=== PATIENT | female | born 1970 | race Hispanic/Latino ===

== ENCOUNTER 2020-05-28 14:16 | Emergency (ER) | payer SELFPAY ==
[~2020-05-28] VITALS: Ht 160 cm; Wt 59.9 kg
[2020-05-28] MEDS ORDERED: MORPHINE SULFATE 2 MG/ML SYR 1ML IM STA (15:27)
[2020-05-28] MEDS ORDERED: ONDANSETRON HCL 4 MG ORAL DISINTEGRATING TAB PO ONE (15:30)
[2020-05-28] MEDS ORDERED: PIPER-TAZ 3.375 GM 50 ML IV ONE (15:45)
--- NOTE | 2020-05-28 15:49 | NUR ---
2mg of morphine
[2020-05-28] MEDS ORDERED: SODIUM CHLORIDE 0.9% 1000ML 1,000 ML ONE (15:58)
--- NOTE | 2020-05-28 16:00 | NUR ---
no relief from the morphine
[2020-05-28 16:01] LABS: BASOPHILS % 0.5 % (0.0-1.0); EOSINOPHILS % 0.6 % (0.0-6.0); HEMATOCRIT 33.7 % (34.2-44.1); HEMOGLOBIN 10.4 g/dL (12.0-16.0); LYMPHOCYTES # (AUTO) 1.2 (1.0-3.2); LYMPHOCYTES % 17.5 % (18.0-39.1); MEAN CORPUSCULAR HEMOGLOBIN 24.6 pg (28-32); MEAN CORPUSCULAR HGB CONC 30.9 g/dL (31-35); MEAN CORPUSCULAR VOLUME 79.9 fL (81-99); MONOCYTES # (AUTO) 0.7 (0.2-0.8); NEUTROPHILS # (AUTO) 4.7 (2.1-6.9); NEUTROPHILS % 70.9 % (38.7-80.0); PLATELET COUNT 294 x10e3/uL (140-360); RED BLOOD COUNT 4.22 x10e6/uL (3.6-5.1); RED CELL DISTRIBUTION WIDTH 15.3 % (11.7-14.4)
[2020-05-28 16:19] LABS: ALANINE AMINOTRANSFERASE 14 IU/L (0-55); ALBUMIN 4.4 g/dL (3.5-5.0); ALBUMIN/GLOBULIN RATIO 1.3 (0.8-2.0); ALKALINE PHOSPHATASE 75 IU/L (40-150); ANION GAP 16.3 mmol/L (8-16); BLOOD UREA NITROGEN 22 mg/dL (7-26); BUN/CREATININE RATIO 33 (6-25); CALCIUM 9.7 mg/dL (8.4-10.2); CARBON DIOXIDE 28 mmol/L (22-29); CHLORIDE 102 mmol/L (98-107); CREATINE KINASE 34 IU/L (29-168); CREATININE, SERUM 0.67 mg/dL (0.57-1.11); EST GLOMERULAR FILTRATION RATE > 60 ML/MIN (60-); GLUCOSE 107 mg/dL (74-118); POTASSIUM 4.3 mmol/L (3.5-5.1); SODIUM 142 mmol/L (136-145)
[2020-05-28] MEDS ORDERED: PANTOPRAZOLE 40 MG 10ML VIAL IV STA (16:24)
[2020-05-28] MEDS ORDERED: SODIUM CHLORIDE 0.9% 50ML 50 ML ONE (16:51)
[2020-05-28] MEDS ORDERED: IOPAMIDOL 370 MG/ML 200 ML INFUS..BTL INJ ONE (16:51)
[2020-05-28] MEDS ORDERED: MORPHINE SULFATE INJ 4 MG/ML INJ 1ML IV PRN (17:00)
--- NOTE | 2020-05-28 17:13 | NUR ---
4 mg of morphine given
[2020-05-28 17:18] LABS: BILIRUBIN,URINE NEGATIVE (NEGATIVE); CLARITY,URINE HAZY (CLEAR); COLOR,URINE YELLOW (YELLOW); KETONES,URINE NEGATIVE (NEGATIVE); LEUKOCYTE ESTERASE ,URINE NEGATIVE (NEGATIVE); NITRITE,URINE NEGATIVE (NEGATIVE); PROTEIN,URINE DIPSTICK NEGATIVE (NEGATIVE); URINE UROBILINOGEN 0.2 mg/dL (0.2 - 1)
[2020-05-28 17:29] LABS: AMORPHOUS SEDIMENT,URINE MANY (FEW); BACTERIA,URINE FEW /HPF
[2020-05-28] MEDS ORDERED: METHYLPREDNISOLONE SOD SUCC 125 MG/2ML VIAL IV ONE (17:30)
[2020-05-28] MEDS ORDERED: DIPHENHYDRAMINE HCL INJ 50 MG/ML VIAL IV ONE (17:30)
--- NOTE | 2020-05-28 17:35 | NUR ---
no relief from the morphine
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
--- NOTE | 2020-05-28 17:45 | NUR ---
refused to drink the ct contrast
[2020-05-28] MEDS: METOPROLOL TARTRATE 25 MG TAB PO ONE ×2 (18:15→21:00)
--- NOTE | 2020-05-28 19:03 | Diagnostic Imaging Report ---
EXAM: CT Chest, Abdomen and Pelvis WITHOUT contrast INDICATION: Chest and abdominal pain. COMPARISON: None. TECHNIQUE: Chest, abdomen and pelvis were scanned utilizing a multidetector helical scanner from the lung apex to the pubic symphysis without administration of IV contrast. Absence of intravenous contrast decreases sensitivity for detection of focal lesions and vascular pathology. Coronal and sagittal reformations were obtained. Routine protocol was performed. IV CONTRAST: None ORAL CONTRAST: Water COMPLICATIONS: None RADIATION DOSE: Total DLP: 796 mGy*cm Estimated effective dose: (DLP x 0.015 x size factor) mSv CTDIvol has been reviewed. It is below the limits set by the Radiation Protocol Committee (RPC). Dose modulation, iterative reconstruction, and/or weight based adjustment of the mA/kV was utilized to reduce the radiation dose to as low as reasonably achievable. FINDINGS: LINES and TUBES: None. LUNGS AND AIRWAYS: The lungs are unremarkable. Airways are normal. PLEURA: The pleural spaces are clear. HEART AND MEDIASTINUM: The thyroid gland is normal. No mediastinal, hilar or axillary lymphadenopathy. The heart is normal in size. There is no pericardial effusion. There are mild atherosclerotic calcifications in the thoracic aortic arch. HEPATOBILIARY: No focal hepatic lesions. No biliary ductal dilation. GALLBLADDER: No radio-opaque stones or sludge. No wall thickening. SPLEEN: No splenomegaly. PANCREAS: No focal masses or ductal dilatation. ADRENALS: No adrenal nodules KIDNEYS/URETERS: No hydronephrosis. No cystic or solid mass lesions. No stones. GI TRACT: No abnormal distention, wall thickening, or evidence of bowel obstruction. Appendix is normal. PELVIC ORGANS/BLADDER: Unremarkable. LYMPH NODES: No lymphadenopathy. VESSELS: Unremarkable. PERITONEUM / RETROPERITONEUM: No free air or fluid. BONES: Focus of increased sclerosis in the left iliac bone compatible with a benign bone island. The bones are otherwise normal with no suspicious osteolytic or osteoblastic lesions. SOFT TISSUES: There is a benign-appearing nodule in the subcutaneous fat of the right lower abdominal wall (series 2 image 88). The soft tissues otherwise normal. IMPRESSION: No intrathoracic, abdominal or pelvic abnormality identified. Signed by: Alfredo Daniels MD on 05/28/2020 7:00 PM
--- NOTE | 2020-05-28 19:51 | NUR ---
pt. requesting more morphine. informed
--- NOTE | 2020-05-28 20:17 | Diagnostic Imaging Report ---
Perfusion Lung Scan NOTE: Lung ventilation studies with xenon are not being performed per the recommendation of the Society of Nuclear Medicine and Molecular Imaging. It is not possible to be certain that the ventilation system is adequately disinfected. Ventilation studies with Tc-99m DTPA particles is contraindicated because the delivery by nebulization generates too many water droplets from the patient's airway. Reason for exam: Chest pain; tachycardia Comparison: CT CAP without contrast 05/28/2020 Discussion: Ventilation images were not obtained. See note above. Perfusion images of the lungs were obtained in multiple projections following intravenous administration of approximately 6 mCi of Tc-99m MAA. Distribution of tracer appears physiologic throughout the lungs except for a nonsegmental perfusion abnormality in the lingula. No segmental perfusion defects of any size are identified. The cardiomediastinal silhouette is unremarkable. Impression: 1. Scan findings represent a VERY LOW probability for acute pulmonary embolic disease based on the perfusion only modified PIOPED II criteria. Concurrent ventilation study would not alter the assigned probability for acute PE. 2. Scan findings are compatible with parenchymal and/or obstructive lung disease in the lingula. Signed by: Dr. Melida Cardenas M.D. on 05/28/2020 8:13 PM
--- NOTE | 2020-05-28 20:49 | NUR ---
requesting more morphine; dr. saavedra informed. 2nd set of cardiac markers drawn and sent off to the lab
[2020-05-28 21:06] LABS: AMPHETAMINES SCREEN,URINE NEGATIVE (NEGATIVE); BENZODIAZEPINES SCREEN,URINE NEGATIVE (NEGATIVE); PHENCYCLIDINE SCREEN,URINE NEGATIVE (NEGATIVE)
--- NOTE | 2020-05-28 21:12 | NUR ---
patient said " fuck you" to this nurse when screaming for pain medication. This nurse attempted to reorient the patient but was unsuccessful. Call light is in reach.
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
--- NOTE | 2020-05-28 21:13 | NUR ---
PATIENT REMAINS AAOX3, V/S/S; PT UNABLE TO STATE LOCATION OF PAIN; HOWEVER, SCREAMING, "FUCK THIS, I JUST HURT, BRING ME THE GOD DAMN MEDICATION BEFORE I CALL ADMINISTRATION.".
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
== END 2020-05-28 21:32 | disposition home or self-care (01) ==
LOC: ER 15:00
DX: R10.32 Left lower quadrant pain (principal); I10 Essential (primary) hypertension; E78.5 Hyperlipidemia, unspecified; D64.9 Anemia, unspecified; Z85.43 Personal history of malignant neoplasm of ovary; Z86.718 Personal history of other venous thrombosis and embolism
CPT/HCPCS: 36415; 71250; 74176; 78582; 80053; 80307; 81001; 82550; 82553; 83605; 84484; 84702; 85025; 85379; 87040; 93005; 99284; C9113; J1200; J2270 ×2; J2543; J2930; J7030; Q0162; Q9967